=== PATIENT | female | born 1970 | race Caucasian/White ===

== ENCOUNTER → 2016-07-03 | Outpatient (REF) | LOC: WSOH 13:59 | DX: Z00.00 Encounter for general adult medical examination without abnormal findings (principal) ==

== ENCOUNTER → 2016-07-05 | Outpatient (REF) | LOC: WSOH 10:35 | DX: Z00.00 Encounter for general adult medical examination without abnormal findings (principal) ==

== ENCOUNTER → 2016-07-26 | Outpatient (REF) | LOC: WSOH 09:07 | DX: Z01.89 Encounter for other specified special examinations (principal) ==

== ENCOUNTER → 2016-08-23 | Outpatient (REF) | LOC: WSOH 11:04 | DX: Z23 Encounter for immunization (principal) ==

== ENCOUNTER → 2017-03-07 | Outpatient (REF) | LOC: ZLAB.WCH 18:08 | DX: Z01.89 Encounter for other specified special examinations (principal) ==

== ENCOUNTER → 2017-12-18 | Outpatient (CLI) | payer SELFPAY | LOC: MC.RAD 07:40 | DX: Z12.31 Encounter for screening mammogram for malignant neoplasm of breast (principal) ==

== ENCOUNTER 2018-04-04 12:25 | Emergency (ER) | payer OTHER ==
[~2018-04-04] VITALS: Ht 154.9 cm; Wt 79.5 kg
[2018-04-04 12:27] VITALS: TEMP 99.3
[2018-04-04] MEDS ORDERED: 00186-0370-20 IH (12:42)
[2018-04-04] MEDS ORDERED: FLONASE NASAL S16 GM NS (12:43)
[2018-04-04] MEDS ORDERED: ZYRTEC 10MG10 MG PO (12:43)
[2018-04-04] MEDS ORDERED: BENADRYL25 M2 PO (12:44)
[2018-04-04] MEDS ORDERED: LOESTRIN 24 FE1 TAB PO (12:45)
[2018-04-04] MEDS ORDERED: ADVIL200 MG PO (12:45)
[2018-04-04 14:07] VITALS: BP 156/85; PULSE 78
== END 2018-04-04 14:07 | disposition home or self-care (01) ==
LOC: COL.ER 12:25
DX: S83.91XA Sprain of unspecified site of right knee, initial encounter (principal); Z88.2 Allergy status to sulfonamides; Z98.890 Other specified postprocedural states; W11.XXXA Fall on and from ladder, initial encounter; Y92.59 Other trade areas as the place of occurrence of the external cause

== ENCOUNTER → 2018-05-14 | Outpatient (CLI) | payer OTHER ==
[~2018-05-14] MED LIST: 00186-0370-20 IH; ADVIL200 MG PO; BENADRYL25 M2 PO; FLONASE NASAL S16 GM NS; LOESTRIN 24 FE1 TAB PO; ZYRTEC 10MG10 MG PO
== END ==
LOC: COL.RAD 13:07
DX: M17.11 Unilateral primary osteoarthritis, right knee (principal); M94.261 Chondromalacia, right knee

== ENCOUNTER 2018-05-17 08:14 | Outpatient (RCR) | payer OTHER | END 2018-05-21 12:56 | disposition home or self-care (01) | LOC: WSOH 08:14 | DX: Z02.89 Encounter for other administrative examinations (principal) | CPT/HCPCS: 24774; L1810 ==

== ENCOUNTER 2018-08-19 08:29 | Outpatient (RCR) | payer OTHER ==
[~2018-08-19 08:29] MED LIST changes: +NORCO 325 MG-51 TAB PO
== END 2018-11-05 | disposition home or self-care (01) ==
LOC: WSOH
DX: S83.412A Sprain of medial collateral ligament of left knee, initial encounter (principal); X50.0XXA Overexertion from strenuous movement or load, initial encounter; Y92.59 Other trade areas as the place of occurrence of the external cause; Y93.89 Activity, other specified; Y99.0 Civilian activity done for income or pay